=== PATIENT | male | born 1950 | race Caucasian/White ===

== ENCOUNTER 2025-07-22 06:48 | Emergency (ER) | payer MEDICARE, BC ==
[2025-07-22] MEDS ORDERED: Sodium Chloride 0.9% 10 ML Syringe FLUSH PRN (07:24)
[2025-07-22 07:45] LABS: BASOPHILS PERCENT AUTO 0.1 % (0.0-1.0); EOSINOPHILS PERCENT AUTO 0.5 % (1.0-3.0); LYMPHOCYTES PERCENT AUTO 12.4 % (20.5-50.1); MONOCYTES PERCENT AUTO 6.3 % (2-8); NEUTROPHILS PERCENT AUTO 80.7 % (42.2-75.2); PLATELET COUNT,PLT 242 10^3/uL (150-450); RED BLOOD CELL COUNT 4.76 10^6/uL (4.6-6.2); WHITE BLOOD CELL COUNT,WBC 11.1 10^3/uL (5.0-10.0)
[2025-07-22 08:00] LABS: INR 1.0 (0.9-1.2)
[2025-07-22 08:08] LABS: A/G RATIO 0.7; ALANINE AMINOTRANSFERASE,ALT 28.0 U/L (16-63); ASPARTATE AMNIOTRANSFERASE,AST 20.0 U/L (15-37); BILIRUBIN TOTAL 0.9 mg/dL (0.2-1.0); BLOOD UREA NITROGEN,BUN 20.0 mg/dL (7-18); CARBON DIOXIDE,CO2 26.0 mmol/L (21-32); CHLORIDE,CL 102.0 mmol/L (98-107); CREATININE 1.14 mg/dL (0.70-1.30); EST CRCL DRUG DOSING (CG) 57.8 mL/min; GLUCOSE RANDOM 184.0 mg/dL (70-99); POTASSIUM,K 4.3 mmol/L (3.5-5.1); PROTEIN TOTAL,TP 8.6 g/dL (6.4-8.2); SODIUM,NA 140.0 mmol/L (136-145)
[2025-07-22 08:10] LABS: D-DIMER QUANTITATIVE 415.0 ng/mL (0-400)
[2025-07-22 08:12] LABS: ESTIMATED GFR 66.0 mL/min (>=60)
[2025-07-22] MEDS: Iopamidol 755 Mg/ML 100 ML Bottle IVPUSH ONE (10:02)
[2025-07-22] MEDS: Clindamycin in 0.9 % Sod Chlor 600 MG in Premix Bag 1 BAG IV ONE (11:40)
[2025-07-22] MEDS: Ketorolac 30 MG/ML SDV IVPUSH ONE (12:30)
== END 2025-07-22 12:50 ==
LOC: DL.ED 06:48
DX: J39.0 Retropharyngeal and parapharyngeal abscess (principal); M46.42 Discitis, unspecified, cervical region; E11.9 Type 2 diabetes mellitus without complications; Z90.49 Acquired absence of other specified parts of digestive tract
CPT/HCPCS: 36415; 70491; 71275; 74174; 80053; 83735; 84484; 85025; 85379; 85610; 93005; 96361; 96365; 96375; 99285; J0696; J0737; J1885; J7030; Q9967

== ENCOUNTER 2025-08-09 16:32 | Emergency (ER) | payer MEDICARE, BC ==
[2025-08-09] MEDS: Ondansetron 4 MG Tab.DIS PO ONE (17:12)
[2025-08-09] MEDS: Take Home: Ondansetron 4 MG Tab.DIS, 5 Tab Pack PO ONE (17:26)
[2025-08-09] MEDS: Lactulose Soln 10 GM/15 ML 30 ML UD Cup PO ONE (17:26)
== END 2025-08-09 17:38 | disposition home or self-care (01) ==
LOC: DL.ED 16:32
DX: K59.00 Constipation, unspecified (principal); E11.9 Type 2 diabetes mellitus without complications; Z79.899 Other long term (current) drug therapy; Z88.8 Allergy status to other drugs, medicaments and biological substances; Z90.49 Acquired absence of other specified parts of digestive tract
CPT/HCPCS: 74018; 99284; A9270; Q0162